=== PATIENT | female | born 1980 | race Caucasian/White ===

== ENCOUNTER → 2017-10-20 | Outpatient (CLI) | payer OTHER ==
--- NOTE | 2017-10-23 07:27 | RT HOLTER TEST ---
FACILITY: [facility] [place] PATIENT NAME: REJI AGUILAR : [id number] MR: [id number] V: [id number] EXAM DATE: ORDERING PHYSICIAN: MARTHA DRAPER TECHNOLOGIST: Hima Hook-up date: 2017-10-20 10:16:00 Duration: 47:59:00 Test Indications: Palpitations Medications: none listed [id number] QRS complexes 1340 Ventricular ectopics which represent <1 % of total QRS comp. 9 Supraventricular ectopics which represent <1 % of total QRS comp. * Paced QRS complexes which represent % of total QRS comp. VENTRICULAR ECTOPY 1340 Isolated 7 Bigeminal Cycles 0 Couplets 0 Runs 0 Beats in Runs * Beats LONGEST at * BPM at :: -- * Beats FASTEST at * BPM at :: -- SUPRAVENTRICULAR ECTOPY 7 Isolated 1 Couplets 0 Runs 0 Beats in Runs * Beats LONGEST at * BPM at :: -- * Beats FASTEST at * BPM at :: -- HEART RATES 54 MIN at 07:28:12 2017-10-22 89 AVG 167 MAX at 12:12:16 2017-10-20 LONGEST RR 1.264 secs at 07:28:07 2017-10-22 S-T LEVELS Channel 1 -12.800 mm MIN at 10:16:00 2017-10-20 -12.800 mm MAX at 10:16:00 2017-10-20 Channel 2 -12.800 mm MIN at 10:16:00 2017-10-20 -12.800 mm MAX at 10:16:00 2017-10-20 Channel 3 -12.800 mm MIN at 10:16:00 2017-10-20 -12.800 mm MAX at 10:16:00 2017-10-20 The patient had ventricular ectopy (VE) with almost all of the symptom events. She had frequent VE. She had rare supraventricular ectopy. Confirmed by KATELYNN CABRERA ([id number]) on 10/23/2017 7:27:08 AM Referred By: Overread By: KATELYNN CABRERA
== END ==
LOC: RESP 09:59
PROVIDERS: ATTEND Physician Assistant
DX: R00.2 Palpitations (principal)
CPT/HCPCS: 93225

== ENCOUNTER 2017-11-16 08:00 | Outpatient (RCR) | payer OTHER ==
[2017-11-16 08:07] VITALS: BP 126/79
[2017-11-16] MEDS ORDERED: ETHI1TAB20 PO (08:10)
[2017-11-16] MEDS ORDERED: TURM1CAP PO (08:10)
[2017-11-16] MEDS ORDERED: OMEP-218 PO (08:10)
[2017-11-16 09:05] LABS: PLATELET COUNT, AUTOMATED 277 K/uL (150-450)
--- NOTE | 2017-11-16 10:27 | ONCOLOGY CONSULTATION ---
EVENT DATE: November 16, 2017 REFERRING PHYSICIAN Leona Valentine PA-C REASON FOR CONSULTATION Evaluation and management of hyperferritinemia. HISTORY OF PRESENT ILLNESS Patient is a 57-year-old who was diagnosed with severe iron deficiency and, as per patient, her ferritin was only 1 at that time in 2011. The patient had a GI workup including colonoscopy and EGD but there was no source of bleeding at that time. She denies also heavy periods. After that, the patient was maintained on iron supplement two pills a day for nearly five years. She has been evaluated by Leona Valentine PA-C and the patient was found to have high ferritin at 629 so her iron supplements were discontinued and her ferritin was checked after that. The next level was 653, then 354 and her last ferritin was 410. The patient was checked for genetic testing for hemochromatosis and she was positive for heterozygous for the H63D mutation. The patient denies any history of hepatitis, alcoholism or any liver damage in the past. PAST MEDICAL HISTORY 1. Neck herniated disk. 2. GERD/hiatal hernia. 3. Palpitations due to ectopic beats. 4. 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 PAST SURGICAL HISTORY 1. No surgeries done but she had a GI workup with colonoscopy and EGD in 2011. 2. [place] teeth extraction. SOCIAL HISTORY The patient is with no children. 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 She denies any abuse of tobacco but she drinks about one to two beers per week. She denies any abuse of illicit drugs. FAMILY HISTORY Paternal grandfather with breast cancer in the 50s. The patient was tested for BRCA mutation, which came back negative. CURRENT MEDICATIONS 1. Prilosec [id number]. 2. Oral contraceptive pills. 3. Tumeric. ALLERGIES: No known drug allergies. REVIEW OF SYSTEMS CONSTITUTIONAL: No appetite or weight change. No fever, chills or sweating. No recent infection. HEENT: Ears: No tinnitus or hearing problem. Nose: No nasal discharge or epistaxis. Throat: No sore throat or mouth ulcers. Eyes: No diplopia or visual changes. RESPIRATORY: No shortness of breath. No cough, expectoration or hemoptysis. CARDIOVASCULAR: No chest pain, orthopnea, or paroxysmal nocturnal dyspnea (PND) . No edema. No palpitations. GASTROINTESTINAL: No nausea or vomiting. No diarrhea or constipation. No change in bowel movements. No heartburn or swallowing difficulties. No abdominal pain. No jaundice. No hematemesis, melena or rectal bleeding. GENITOURINARY: No hematuria or dysuria. MUSCULOSKELETAL: She had some tingling and numbness in the right upper extremity from her herniated disk and neck. NEUROLOGICAL: No tingling or numbness in the hands or feet. No headaches or convulsions. HEMATOLOGIC/LYMPHATIC: No bleeding or easy bruising. No weakness or fatigued. No enlarged lymph nodes. SKIN: No skin rash or lumps. PSYCHIATRIC: No anxiety or depression. PHYSICAL EXAMINATION GENERAL: Looks stable. Well-developed, well-nourished, and in no acute distress. VITAL SIGNS: Blood pressure 126/79, pulse 91 per minute, respirations 16 per minute, temperature 98.1, pulse oximetry 95% on room air. HEENT: Head: Atraumatic. No sinus tenderness to palpation. Eyes: No icterus or conjunctivitis. Mouth and throat: No oral thrush or mucositis. NECK: Supple. No cervical or supraclavicular lymphadenopathy. LUNGS: Clear to auscultation and percussion bilaterally. HEART: Regular rate and rhythm. No gallops, murmurs, clicks or rubs. ABDOMEN: Soft and lax. No tenderness. No hepatosplenomegaly. No masses. EXTREMITIES: No cyanosis, clubbing or edema. LYMPHATICS: No peripheral lymphadenopathy. NEUROLOGICAL: Conscious, alert and oriented times three. No focal motor or sensory deficits. PSYCHIATRIC: Mood and affect appear normal. SKIN: No skin rash, bruise or purpuric eruption. IMPRESSION Hyperferritinemia, most probably due to her iron supplementation for five years despite the fact she is heterozygous for H63D mutation for the HFE gene for hemochromatosis. She is a carrier and usually carriers of hemochromatosis do not develop iron overload. I believe her high ferritin is due to her iron supplementation in the past and her level actually is going down after stopping the iron. I am planning to check her full iron studies today to decide if the patient will need phlebotomy or not so I am planning to do the serum iron, TIBC , transferrin, iron saturation and ferritin. If her ferritin is high and her iron saturation is more than 60%, I will consider phlebotomy but if not I will continue to monitor her ferritin and iron studies on a yearly basis. I am planning to also check her liver enzymes and if they are high will consider ultrasound of the liver. I explained that to the patient and she is agreeable with the plan of management. PLAN 1. Iron studies with ferritin. 2. CBC. 3. Comprehensive metabolic panel. 4. The patient will return in a week for further evaluation and management. 5. The patient is to contact us for any new concerns or complaints. JOVANA
== END 2017-12-29 11:06 | disposition home or self-care (01) ==
LOC: ONC 08:00
PROVIDERS: ATTEND Internal Medicine Hematology
DX: E83.119 Hemochromatosis, unspecified (principal)
CPT/HCPCS: 36415; 82040; 82247; 82310; 82374; 82435; 82565; 82728; 82947; 83540; 83550; 84075; 84132; 84155; 84295; 84450; 84460; 84520; 85025; 99202

== ENCOUNTER → 2017-12-18 | Outpatient (CLI) | payer OTHER ==
[~2017-12-18] MED LIST: ETHI1TAB20 PO; OMEP-218 PO; TURM1CAP PO
--- NOTE | 2017-12-18 11:38 | RADIOLOGY IMAGING REPORT ---
FACILITY: [facility] - [place] PATIENT NAME: Mary Jo Alvarenga : 1980 MR: [id number] V: [id number] EXAM DATE: ORDERING PHYSICIAN: DRE ROUSE TECHNOLOGIST: Location: [facility] Patient: Mary Jo Alvarenga : 1980 Visit/Account:[id number] Date of Sevice: 12/18/2017 EXAMINATION: MRI Cervical spine without intravenous contrast HISTORY: Right arm pain. COMPARISON: None available. TECHNIQUE: Multi-planar, multi-sequence cervical spine MRI was performed without intravenous contras t administration. FINDINGS: Motion artifact on multiple sequences. Alignment: Normal. Vertebral marrow signal: Mild discogenic fatty marrow changes at C5-C6. Otherwise negative. Cranio-cervical junction: Negative. Visualized posterior fossa: Negative. Soft tissues: Negative. Cervical cord: Negative. Disc Spaces: C1-2: Negative. C2-3: Negative. C3-4: Negative. C4-5: Small broad-based disc osteophyte complex with right greater than left uncovertebral hypertroph y. No significant spinal canal stenosis. Mild left and moderate to severe right neural foraminal sten osis. C5-6: Moderate disc height loss with circumferential disc osteophyte complex, eccentric to the left. Mild spinal canal stenosis. Mild to moderate right and moderate to severe left neural foraminal steno sis. C6-7: Mild disc height loss. Circumferential disc osteophyte complex, eccentric to the right. Mild sp inal canal stenosis. Mild to moderate left and moderate to severe right neural foraminal stenosis. C7-T1: Negative. Upper thoracic spine: Negative. IMPRESSION: 1. Difficult evaluation secondary to motion artifact on multiple sequences. 2. Multilevel degenerative disc disease. Please see above report for level by level description. Report Dictated By: Alex Haynes MD at 12/18/2017 11:26 AM Report E-Signed By: Alex Haynes MD at 12/18/2017 11:33 AM WSN:[id number]
== END ==
LOC: MRI 00:54
PROVIDERS: ATTEND Physician Assistant Medical
DX: M50.33 Other cervical disc degeneration, cervicothoracic region (principal)
CPT/HCPCS: 72141

== ENCOUNTER 2018-03-09 08:58 | Outpatient (RCR) | payer OTHER ==
[2018-01-05 08:07] VITALS: BP 126/84
--- NOTE | 2018-01-05 16:11 | ONCOLOGY FOLLOW UP NOTE ---
EVENT DATE: January 05, 2018 DIAGNOSES 1. 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 2. Hyperferritinemia. CHIEF COMPLAINT Patient is here today for followup of her hyperferritinemia with carrier state of hemochromatosis. HEMATOLOGY HISTORY Patient is a 37-year-old who was diagnosed with severe iron deficiency and, as per patient, her ferritin was only 1 at that time in 2011. The patient had a GI workup including colonoscopy and EGD, but there was no source of bleeding at that time. She denies also heavy periods. After that, the patient was maintained on iron supplement two pills a day for nearly five years. She has been evaluated by Leona Valentine PA-C, and the patient was found to have high ferritin at 629, so her iron supplements were discontinued, and her ferritin was checked after that. The next level was 653, then 354, and her last ferritin was 410. The patient was checked for genetic testing for hemochromatosis, and she was positive for heterozygous for the H63D mutation. The patient denies any history of hepatitis, alcoholism, or any liver damage in the past. HISTORY OF PRESENT ILLNESS Patient is here for followup of her hyperferritinemia with heterozygous state of hemochromatosis. She had some problem with her neck due to herniated disk between C5 to C6, and she had severe pain at that time with radicular pain along her right upper extremity. It got better with epidural injections with steroid. Other than that, she is really doing very well. PAST MEDICAL HISTORY 1. Neck herniated disk. 2. GERD/hiatal hernia. 3. Palpitations due to ectopic beats. 4. 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 PAST SURGICAL HISTORY 1. No surgeries done, but she had a GI workup with colonoscopy and EGD in 2011. 2. [place] teeth extraction. SOCIAL HISTORY The patient is with no children. 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 She denies any abuse of tobacco, but she drinks about one to two beers per week. She denies any abuse of illicit drugs. FAMILY HISTORY Paternal grandfather with breast cancer in the 50s. The patient was tested for BRCA mutation, which came back negative. CURRENT MEDICATIONS 1. Prilosec over the counter. 2. Oral contraceptive pills. 3. Tumeric. ALLERGIES: No known drug allergies. REVIEW OF SYSTEMS CONSTITUTIONAL: No appetite or weight change. No fever, chills, or sweating. No recent infection. HEENT: Ears: No tinnitus or hearing problem. Nose: No nasal discharge or epistaxis. Throat: No sore throat or mouth ulcers. Eyes: No diplopia or visual changes. RESPIRATORY: No shortness of breath. No cough, expectoration, or hemoptysis. CARDIOVASCULAR: No chest pain, orthopnea, or paroxysmal nocturnal dyspnea (PND). No edema. No palpitations. GASTROINTESTINAL: No nausea or vomiting. No diarrhea or constipation. No change in bowel movements. No heartburn or swallowing difficulties. No abdominal pain. No jaundice. No hematemesis, melena, or rectal bleeding. GENITOURINARY: No hematuria or dysuria. MUSCULOSKELETAL: She had neck pain which got better after epidural injection of steroids. NEUROLOGICAL: She had some numbness in the right upper extremity which also got better with the epidural steroid injection. HEMATOLOGIC/LYMPHATIC: No bleeding or easy bruising. No weakness or fatigued. No enlarged lymph nodes. SKIN: No skin rash or lumps. PSYCHIATRIC: No anxiety or depression. PHYSICAL EXAMINATION GENERAL: Looks stable. Well developed, well nourished, and in no acute distress. VITAL SIGNS: Blood pressure 126/84, pulse 88 per minute, respirations 16 per minute, temperature 98.4, pulse ox 94% on room air. HEENT: Head: Atraumatic. No sinus tenderness to palpation. Eyes: No icterus or conjunctivitis. Mouth and throat: No oral thrush or mucositis. NECK: Supple. No cervical or supraclavicular lymphadenopathy. LUNGS: Clear to auscultation and percussion bilaterally. HEART: Regular rate and rhythm. No gallops, murmurs, clicks, or rubs. ABDOMEN: Soft and lax. No tenderness. No hepatosplenomegaly. No masses. EXTREMITIES: No cyanosis, clubbing, or edema. LYMPHATICS: No peripheral lymphadenopathy. NEUROLOGICAL: Conscious, alert, and oriented times three. No focal motor or sensory deficits. PSYCHIATRIC: Mood and affect appear normal. SKIN: No skin rash, bruise, or purpuric eruption. DIAGNOSTIC DATA CBC shows white count 5.6, hemoglobin 15.2, hematocrit 42.6, platelets 277,000. Serum iron 131, TIBC 381, iron saturation 34.4%, and ferritin 260. Chem panel is totally normal. ASSESSMENT Heterozygous state for H63D mutation of the HFE gene of hemochromatosis with hyperferritinemia. Patient was taking iron supplement in the past which was stopped by the patient recently, and her ferritin has fluctuation in its level. Her current ferritin is high at 260, and the upper limit of normal is 137. Iron saturation is 34.4%. I am planning to phlebotomize 500 mL of blood this time. I will see her again in two months with CBC, chemistry panel, and iron studies with ferritin. My target is to keep her ferritin within the normal range and iron saturation less than 60%. PLAN 1. Phlebotomize 500 mL of blood. 2. Patient to return in two months with CBC, chem panel, and iron studies with ferritin. 3. Patient to contact us for any new concerns or complaints. JOVANA
[2018-01-09 09:09] VITALS: BP 129/84
[2018-01-09] MEDS: LIDOCAINE/SOD BICARB 8.4% SYR ID PRN (09:30)
[2018-01-09 09:35] VITALS: BP 85/62
[2018-01-09 09:37] VITALS: BP 88/64
[2018-01-09 09:51] VITALS: BP 108/67
[2018-01-09 10:01] VITALS: BP 122/87
[2018-01-09 10:21] VITALS: BP 133/105
[2018-03-06 09:19] LABS: PLATELET COUNT, AUTOMATED 315 K/uL (150-450)
[~2018-03-09 08:58] MED LIST changes: +ACET-1966 PO; +DEXTROSE 5%(*) 100 ML BAG 100 ML IVPB PRN; +NS(*) 0.9% 100 ML BAG 100 ML IVPB PRN
[2018-03-09 09:08] VITALS: BP 127/80
[2018-03-09 14:53] VITALS: BP 122/74
[2018-03-09] MEDS: LIDOCAINE/SOD BICARB 8.4% SYR ID PRN (15:02)
[2018-03-09 15:09] VITALS: BP 119/67
--- NOTE | 2018-03-10 15:12 | ONCOLOGY FOLLOW UP NOTE ---
EVENT DATE: March 09, 2018 CHIEF COMPLAINT Follow up for heterozygote state hemochromatosis. HISTORY OF PRESENT ILLNESS Patient is a 37-year-old female who was seen today in followup for heterozygous state for hemochromatosis with H63D mutation at the HFE gene. On initial presentation, ferritin was 260. She underwent phlebotomy on 01/05/18 and presents today for followup. Overall, she feels well. She notes occasional hip pain, but nothing persistent. She recently was prescribed propranolol which she will use on a p.r.n. basis for heart palpitations. She denies any other new complaints. We spent some time discussing the nature of her hemochromatosis. HEMATOLOGY HISTORY The patient is a 37-year-old female who was diagnosed with severe iron deficiency and ferritin of 1 in 2011. GI workup, including colonoscopy and EGD, was done, but no source of bleeding was noted. She did not have heavy periods. After that, she was maintained on iron supplements for nearly five years. She was then noted to have a high ferritin of 629, so her iron supplements were discontinued. She presented in our office and was found to be positive for heterozygosity of the H63D mutation. PAST MEDICAL HISTORY 1. Neck herniated disk at C5-C6. 2. GERD/hiatal hernia. 3. Palpitations due to ectopic beats. 4. 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 5. Heterozygous state hemochromatosis. PAST SURGICAL HISTORY 1. No surgeries done, but she had a GI workup with colonoscopy and EGD in 2011. 2. [place] teeth extraction. SOCIAL HISTORY The patient is with no children. 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 She denies any abuse of tobacco, but she drinks about one to two beers per week. She denies any abuse of illicit drugs. FAMILY HISTORY Paternal grandfather with breast cancer in the 50s. The patient was tested for BRCA mutation, which came back negative. CURRENT MEDICATIONS 1. Prilosec over the counter. 2. Oral contraceptive pills. 3. Tumeric. 4. Propranolol p.r.n. ALLERGIES: No known drug allergies. REVIEW OF SYSTEMS A 12-point review of systems is performed and is negative except as stated above. PHYSICAL EXAMINATION VITAL SIGNS: Weight 63.1 kg. BP 127/80, P 84, R 16, temp 97.5, O2 sat 95%. GENERAL: Patient is a well-developed, well-nourished female in no acute distress. HEAD: Atraumatic, normocephalic. EYES: No scleral icterus. MOUTH: Moist mucous membranes. NECK: Supple. No palpable adenopathy. LUNGS: Clear bilaterally. CARDIOVASCULAR: Heart rate regular, 84 per minute. EXTREMITIES: No edema. NEUROLOGIC: Nonfocal. LABORATORIES CBC on 03/06/18 showed a WBC of 5.9, hemoglobin 14.0, hematocrit 41.4, platelets 315,000. Iron saturation 23.8%, ferritin 189, serum iron 84. IMPRESSION The patient is a 37-year-old female with heterozygous state for H63D mutation of the HFE gene of hemochromatosis with hyperferritinemia. She last had a phlebotomy on 01/05/18. PLAN 1. Phlebotomy of 500 mL today. Target goal is to keep ferritin <137 and iron saturation <60%. She will go home now, eat and increase her fluid intake as she had difficulties with last phlebotomy, but she feels reassured that she can do this today. 2. Palpitations. Continue propranolol on a p.r.n. basis. 3. Follow up in two months for continued care. CBC, CMP, and iron studies will be drawn before that visit. JOVANA
== END 2018-04-04 ==
LOC: ONC 08:58
PROVIDERS: ATTEND Internal Medicine Hematology
DX: E61.1 Iron deficiency (principal); R00.2 Palpitations
CPT/HCPCS: 36415; 82040; 82247; 82310; 82374; 82435; 82565; 82728; 82947; 83540; 83550; 84075; 84132; 84155; 84295; 84450; 84460; 84520; 85025; 99195; 99212

== ENCOUNTER 2018-05-11 09:30 | Outpatient (RCR) | payer OTHER ==
[2018-05-09 08:40] VITALS: BP 148/83
[2018-05-09 09:05] LABS: PLATELET COUNT, AUTOMATED 286 K/uL (150-450)
[~2018-05-11 09:30] MED LIST changes: -DEXTROSE 5%(*) 100 ML BAG 100 ML IVPB PRN; -NS(*) 0.9% 100 ML BAG 100 ML IVPB PRN
[2018-05-11 11:44] VITALS: BP 136/87
--- NOTE | 2018-05-12 10:00 | EL-TARABILY ONCOLOGY NOTE ---
EVENT DATE: May 11, 2018 DIAGNOSES 1. 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 2. Hyperferritinemia. CHIEF COMPLAINT Patient is here today for followup of her hyperferritinemia with carrier state of hemochromatosis. HEMATOLOGY HISTORY Patient is a 37-year-old who was diagnosed with severe iron deficiency and, as per patient, her ferritin was only 1 at that time in 2011. The patient had a GI workup including colonoscopy and EGD, but there was no source of bleeding at that time. She denies also heavy periods. After that, the patient was maintained on iron supplement two pills a day for nearly five years. She has been evaluated by Leona Valentine PA-C, and the patient was found to have high ferritin at 629, so her iron supplements were discontinued, and her ferritin was checked after that. The next level was 653, then 354, and her last ferritin was 410. The patient was checked for genetic testing for hemochromatosis, and she was positive for heterozygous for the H63D mutation. The patient denies any history of hepatitis, alcoholism, or any liver damage in the past. HISTORY OF PRESENT ILLNESS Patient is here for followup of her hyperferritinemia with heterozygous state of hemochromatosis. She is doing fine currently and she is totally asymptomatic today. She had some problem with her phlebotomy as she collapsed with her first time but her second time was better. She was receiving IV fluid with that. They were able to phlebotomize 250 mL the first session and 350 mL the second session. She is doing very well currently and she is totally asymptomatic. Her palpitation, which she thought could be due to her iron overload, is actually much better currently after her two phlebotomies. PAST MEDICAL HISTORY 1. Neck herniated disk. 2. GERD/hiatal hernia. 3. Palpitations due to ectopic beats. 4. 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 PAST SURGICAL HISTORY 1. No surgeries done, but she had a GI workup with colonoscopy and EGD in 2011. 2. [place] teeth extraction. SOCIAL HISTORY The patient is with no children. 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 She denies any abuse of tobacco, but she drinks about one to two beers per week. She denies any abuse of illicit drugs. FAMILY HISTORY Paternal grandfather with breast cancer in the 50s. The patient was tested for BRCA mutation, which came back negative. CURRENT MEDICATIONS 1. Prilosec over the counter. 2. Oral contraceptive pills. 3. Tumeric. ALLERGIES: No known drug allergies. REVIEW OF SYSTEMS CONSTITUTIONAL: No appetite or weight change. No fever, chills, or sweating. No recent infection. HEENT: Ears: No tinnitus or hearing problem. Nose: No nasal discharge or epistaxis. Throat: No sore throat or mouth ulcers. Eyes: No diplopia or visual changes. RESPIRATORY: No shortness of breath. No cough, expectoration, or hemoptysis. CARDIOVASCULAR: No chest pain, orthopnea, or paroxysmal nocturnal dyspnea (PND). No edema. No palpitations. GASTROINTESTINAL: No nausea or vomiting. No diarrhea or constipation. No change in bowel movements. No heartburn or swallowing difficulties. No abdominal pain. No jaundice. No hematemesis, melena, or rectal bleeding. GENITOURINARY: No hematuria or dysuria. MUSCULOSKELETAL: She had neck pain which got better after epidural injection of steroids. NEUROLOGICAL: She had some numbness in the right upper extremity which also got better with the epidural steroid injection. HEMATOLOGIC/LYMPHATIC: No bleeding or easy bruising. No weakness or fatigued. No enlarged lymph nodes. SKIN: No skin rash or lumps. PSYCHIATRIC: No anxiety or depression. PHYSICAL EXAMINATION GENERAL: Looks stable. Well developed, well nourished, and in no acute distress. VITAL SIGNS: Blood pressure 136/87, pulse 93 per minute, respirations 16 per minute, temperature 98.5, pulse ox 94% on room air. HEENT: Head: Atraumatic. No sinus tenderness to palpation. Eyes: No icterus or conjunctivitis. Mouth and throat: No oral thrush or mucositis. NECK: Supple. No cervical or supraclavicular lymphadenopathy. LUNGS: Clear to auscultation and percussion bilaterally. HEART: Regular rate and rhythm. No gallops, murmurs, clicks, or rubs. ABDOMEN: Soft and lax. No tenderness. No hepatosplenomegaly. No masses. EXTREMITIES: No cyanosis, clubbing, or edema. LYMPHATICS: No peripheral lymphadenopathy. NEUROLOGICAL: Conscious, alert, and oriented times three. No focal motor or sensory deficits. PSYCHIATRIC: Mood and affect appear normal. SKIN: No skin rash, bruise, or purpuric eruption. DIAGNOSTIC DATA CBC shows white count 8.6, hemoglobin 15.6, hematocrit 43.8, platelets 286,000. Serum iron 108, TIBC 349, iron saturation 30.9% and serum ferritin 138. ASSESSMENT Heterozygous state for H63D mutation of the HFE gene of hemochromatosis with hyperferritinemia. Patient was taking iron supplement in the past, which she stopped already. Her ferritin has fluctuation in its level. Her current ferritin is 138, which is down from 260. The patient received two sessions of phlebotomy with phlebotomizing 250 mL the first one and 350 mL the second one as the patient with the first phlebotomy had some collapse and dizziness but with IV fluids with the second one she did much better. She felt her palpitations are getting better with two phlebotomy sessions. Given that her ferritin currently is just above the normal at 138, I am not planning to phlebotomize blood this time. I will see her in three months from now with CBC, chem panel and iron studies with ferritin at that time. PLAN 1. Continue followup. 2. Patient to return in three months with CBC, chem panel, and iron studies with ferritin. 3. Patient to contact us for any new concerns or complaints. JOVANA
== END 2018-08-07 ==
LOC: ONC 09:30
PROVIDERS: ATTEND Internal Medicine Hematology
DX: E83.119 Hemochromatosis, unspecified (principal); R00.2 Palpitations
CPT/HCPCS: 36415; 82040; 82247; 82310; 82374; 82435; 82565; 82728; 82947; 83540; 83550; 84075; 84132; 84155; 84295; 84450; 84460; 84520; 85025; 99212

== ENCOUNTER 2018-08-14 08:00 | Outpatient (RCR) | payer OTHER ==
[2018-08-14 08:25] VITALS: BP 128/51
[2018-08-14 08:29] LABS: PLATELET COUNT, AUTOMATED 294 K/uL (150-450)
--- NOTE | 2018-08-14 19:23 | ONCOLOGY FOLLOW UP NOTE ---
EVENT DATE: August 14, 2018 DIAGNOSES 1. 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 2. Hyperferritinemia. CHIEF COMPLAINT Patient is here today for followup of her hyperferritinemia with carrier state of hemochromatosis. HEMATOLOGY HISTORY Patient is a 37-year-old who was diagnosed with severe iron deficiency and, as per patient, her ferritin was only 1 at that time in 2011. The patient had a GI workup including colonoscopy and EGD, but there was no source of bleeding at that time. She denies also heavy periods. After that, the patient was maintained on iron supplement two pills a day for nearly five years. She has been evaluated by Leona Valentine PA-C, and the patient was found to have high ferritin at 629, so her iron supplements were discontinued, and her ferritin was checked after that. The next level was 653, then 354, and her last ferritin was 410. The patient was checked for genetic testing for hemochromatosis, and she was positive for heterozygous for the H63D mutation. The patient denies any history of hepatitis, alcoholism, or any liver damage in the past. HISTORY OF PRESENT ILLNESS Patient is here for followup of her hyperferritinemia with heterozygous state of hemochromatosis. Overall, she reports that she has been doing well and remains asymptomatic. She did have some trouble in the past with phlebotomy as she collapsed her first time with phlebotomy, though her second time was much improved. She did receive IV fluids with that. They were able to phlebotomize 250 mL with the first session and 350 mL with the second session. She has not required phlebotomy since at least before May. She has had some occasional palpitations, which she thought may be related to her iron overload. It is actually much better after her two phlebotomies in the past. She believes she may have had occasional episodes of palpitations, but none as significant as in the past. She has occasional joint aches in her hands bilaterally, but is also unsure if this is related to iron overload or normal joint aches. She does report significant stress due to working on her PhD. She recently returned from vacation in [place]. PAST MEDICAL HISTORY 1. Neck herniated disk. 2. GERD/hiatal hernia. 3. Palpitations due to ectopic beats. 4. 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 PAST SURGICAL HISTORY 1. No surgeries done, but she had a GI workup with colonoscopy and EGD in 2012. 2. [place] teeth extraction. SOCIAL HISTORY The patient is with no children. 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 She denies any abuse of tobacco, but she drinks about one to two beers per week. She denies any abuse of illicit drugs. FAMILY HISTORY Paternal grandfather with breast cancer in the 50s. The patient was tested for BRCA mutation, which came back negative. CURRENT MEDICATIONS 1. Prilosec over the counter. 2. Oral contraceptive pills. 3. Tumeric. ALLERGIES: No known drug allergies. REVIEW OF SYSTEMS CONSTITUTIONAL: Patient denies any recent fevers, night sweats, or infections. HEENT: No tinnitus. No vision changes. No dysphagia or odynophagia. No mouth sores. RESPIRATORY: No shortness of breath. No cough, sputum production, or hemoptysis. No pleuritic chest pain. CARDIOVASCULAR: She has had occasional episodes of palpitations, but none as severe as in the past. Otherwise, no chest pain, no syncope or presyncope. GASTROINTESTINAL: No abdominal pain, nausea, vomiting, constipation, diarrhea, bright red blood per rectum, or melena. Appetite is normal. GENITOURINARY: No dysuria, hematuria, or genitourinary discharge. MUSCULOSKELETAL: She had some neck pain last year which significantly improved after epidural steroid injection. NEUROLOGIC: She did have some numbness in the right upper extremity after injury but this improved after epidural injection. No headaches, seizure-like activity. SKIN: No rash, lumps, or suspicious bumps. PSYCHIATRIC: She denies any severe anxiety, severe depression, suicidal or homicidal ideation. The remainder of her 12-point review of systems is performed today and is otherwise negative. PHYSICAL EXAMINATION VITAL SIGNS: No weight today. T 98.5, P 104, R 16, BP 128/51, oxygen saturation 95% room air. GENERAL: In general, this is a pleasant, young 37-year-old woman who appears well hydrated, well nourished, and is in no acute distress. HEAD: Atraumatic, normocephalic. EYES: Sclerae anicteric. ENT, MOUTH: No mucositis. No suspicious ulcerations. NECK: Supple. No lymphadenopathy. LUNGS: Clear to auscultation bilaterally. No focal findings. HEART: Mildly tachycardic, regular rhythm. No ectopy. ABDOMEN: Soft, nontender, nondistended. EXTREMITIES: No edema. No clubbing or cyanosis. NEUROLOGIC: Patient is awake, alert, oriented x3. PSYCHIATRIC: Mood and affect appear appropriate. DERM: No rash, petechiae, or purpura. MUSCULOSKELETAL: Ambulation and gait are steady. LABORATORY CBC today: WBC 6.9, ANC 3.5, hemoglobin 13.4, hematocrit 43.9%, platelets 294,000. CMP today: Largely unremarkable with the exception of minimally low sodium at 135. Iron studies: Pending at the time of our visit, and patient was discharged. During time of dictation, iron levels returned with ferritin at 140, comparable to last ferritin level of 138 on 05/09/18. Iron saturation today 23.8%, decreased from previous at 30.9% on 05/09/18. IMPRESSION AND PLAN This is a 37-year-old woman with heterozygous state for H63D mutation of the HFE gene of hemochromatosis with hyperferritinemia. Patient was taking iron supplement in the past, which she stopped already. She remains off oral iron. Her ferritin level has fluctuated a bit. At last visit, this was 138, and prior to that, it was 260. She received two sessions of phlebotomy at that time. She did feel much better after phlebotomy. Her palpitations improved as well. At last visit, since her ferritin was just above normal at 138, we did not plan any further phlebotomy. Today, CBC is normal, and iron levels were pending at time of visit. Labs did return with very comparable iron levels with ferritin minimally up compared to last visit at 140 and iron saturation still low at 23%. 1. No phlebotomy at this time as patient is quite stable. Patient was called shortly after our visit once all labs returned and was made aware of ferritin and iron saturation levels. 2. Patient will return to clinic in three months with followup and labs to include CBC, CMP, iron studies to include ferritin, TIBC, and iron saturation. 3. Patient may certainly contact us or follow up with us in the interim for any new issues or concerns. JOVANA
== END 2018-11-11 ==
LOC: SPU 08:00
PROVIDERS: ATTEND Internal Medicine Hematology
DX: E83.110 Hereditary hemochromatosis (principal)
CPT/HCPCS: 36415; 82040; 82247; 82310; 82374; 82435; 82565; 82728; 82947; 83540; 83550; 84075; 84132; 84155; 84295; 84450; 84460; 84520; 85025; 99212

== ENCOUNTER 2018-11-14 11:49 | Outpatient (RCR) | payer OTHER | END 2018-11-19 15:56 | disposition home or self-care (01) | LOC: SPU 11:49 | PROVIDERS: ATTEND Internal Medicine Hematology | DX: D50.9 Iron deficiency anemia, unspecified (principal); R00.2 Palpitations ==